=== PATIENT | female | born 1970 | race Caucasian/White ===

== ENCOUNTER 2019-12-03 23:05 | Emergency (ER) | payer BC, SELFPAY ==
[2019-12-03 23:06] VITALS: BP 169/97; PULSE 93; RESP 17; O2SAT 93
[2019-12-03 23:16] VITALS: BP 169/97; PULSE 101; RESP 14; TEMP 36.6; O2SAT 98; BMI 31.6
--- NOTE | 2019-12-03 23:24 | XR_ITS ---
PROCEDURE: XR ANKLE RT MIN 3V CLINICAL INDICATION: ankle pain Pain and swelling COMPARISON: No exams were available for comparison FINDINGS: There is mild soft tissue swelling at the lateral malleolar region. There is some inversion the ankle. Prominent hypertrophic changes are present of the anterior aspect of the talus. There is minimal anterior subluxation of the talus. 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
[2019-12-03 23:30] VITALS: BP 174/97; PULSE 86; RESP 18; O2SAT 93
--- NOTE | 2019-12-04 00:12 | HMH.EDLOEX ---
ED Disposition Clinical Impression: Ankle sprain and strain Disposition: Home, Self-Care Condition on Discharge: Fair Instructions: Sprain Additional Instructions: Ankle X rays showed no acute fracture; provided with an Aircast; Advised to have rest ice elevation and anti-inflammatory medication she will be prescribed crutches Referrals: Provider,Referral, [Primary Care Provider] - Time of Disposition: 01:27 - Critical Care Critical Care Time: No Attestation: On 12/03/19, the high probability of a clinically significant, sudden or life threatening deterioration of the following system(s) required my full and direct attention, intervention and personal management. The time I documented below is in addition to time spent performing reported procedures but includes the following listed in this critical care notation. Medical Decision Making - Medical Records Medical records reviewed: Yes: I reviewed the patient's medical records. MR Comment: Patient reports she was standing in the shower when she had a stabbing pain in her right ankle and had a knot pop up. Patient denies any known injuries. Xrays of the ankle showed no acute fracture. Plan is to provide her with an active ankle and advise rest, ice, elevation and anti-inflammatory medications - Mark Inquiry Pt receiving controlled substance: No Vital Signs: 12/03/19 23:06 12/03/19 23:16 12/03/19 23:30 Temperature 97.9 F Temperature Source Oral Pulse Rate [Right Brachial] 93 H 101 H 86 Respiratory Rate 17 14 18 Blood Pressure [Right Arm] 169/97 H 169/97 H 174/97 H Blood Pressure Mean [Right Arm] 121 121 122 Blood Pressure Source [Right Arm] Automatic Cuff Automatic Cuff Automatic Cuff Blood Pressure Position [Right Arm] Supine Sitting Supine 02 Sat by Pulse Oximetry 93 L 98 93 L Oxygen Delivery Method Room Air Room Air Room Air 12/04/19 00:40 Temperature Temperature Source Pulse Rate [Right Brachial] 77 Respiratory Rate 16 Blood Pressure [Right Arm] 145/93 H Blood Pressure Mean [Right Arm] 110 Blood Pressure Source [Right Arm] Automatic Cuff Blood Pressure Position [Right Arm] Sitting 02 Sat by Pulse Oximetry 97 Oxygen Delivery Method Room Air Orders (Tests/Meds): ED MEDICATIONS Discontinued Medications Generic Name Dose Route Start Last Admin Trade Name Freq PRN Reason Stop Dose Admin Ketorolac Tromethamine 60 mg 12/04/19 00:41 12/04/19 00:45 Toradol 60mg/2ml Vial IM 12/04/19 00:42 60 mg ONCE ONE Administration ORDERS Category Date Time Status Ankle XR -Right minimum 3 Views [XR ankle RT min 3V] Exams 12/03/19 23:24 Taken Stat Lower Extremity Injury HPI - General Chief Complaint: Extremity Injury, Lower Stated Complaint: Pain in Rt Ankle Time Seen by Provider: 12/03/19 23:33 Mode of Arrival: Ambulatory Limitations: No Limitations Description of Symptoms (Recalled from ER Triage Doc. by RN): Patient reports she was standing in the shower when she had a stabbing pain in her right ankle and had a knot pop up. Patient denies any known injuries. - History of Present Illness HPI Narrative: Patient reports she was standing in the shower when she had a stabbing pain in her right ankle and had a knot pop up. Patient denies any known injuries. Onset (ago): minute(s) Injury: Right: ankle (pain and swelling) Type of Injury: unknown Place: home Severity: moderate Severity scale (1-10): 4 Relieving factors: NSAID Exacerbating factors: movement Context: other Associated symptoms: snap/pop sensation, swelling Other symptoms: none Treatments prior to arrival: cold therapy - Related Data Allergies Allergy/AdvReac Type Severity Reaction Status Date / Time No Known Allergies Allergy Verified 12/03/19 23:23 [facility] History - Hepatitis A Screen Drug use history?: No High risk sexual behaviors?: No History of sexually transmitted infection?: No Currently employed?: No Childcare worker?: No Do you
[2019-12-04 00:40] VITALS: BP 145/93; PULSE 77; RESP 16; O2SAT 97
[2019-12-04 01:36] VITALS: BP 148/86; PULSE 70; RESP 16; TEMP 36.6; O2SAT 96
== END 2019-12-04 01:57 | disposition home or self-care (01) ==
PROVIDERS: Emergency Provider Emergency Medicine
DX: S93.401A Sprain of unspecified ligament of right ankle, initial encounter (principal); X50.1XXA Overexertion from prolonged static or awkward postures, initial encounter; Y92.012 Bathroom of single-family (private) house as the place of occurrence of the external cause; F17.210 Nicotine dependence, cigarettes, uncomplicated
CPT/HCPCS: 73610; 96372; 99283

== ENCOUNTER 2021-06-02 21:54 | Observation (INO) | payer OTHER, SELFPAY ==
--- NOTE | 2021-06-02 21:37 | ECG_ITS ---
APPROVED REPORT Exam: Resting ECG HR:127 bpm ECG Measurements Heart Rate 127 AXES OR 162 P 59 QRSd 96 QRS 60 QT 310 T 45 QTc 450 Conclusion Sinus tachycardia Otherwise normal ECG Electronically signed by : Jimbo Shields MD 06/04/2021 14:28:55
[2021-06-02 21:54] VITALS: BP 189/120; PULSE 121; RESP 20; TEMP 36.8; O2SAT 97; BMI 30.7
[2021-06-02 22:00] VITALS: BP 162/98; PULSE 100; RESP 20; TEMP 36.9; O2SAT 98
--- NOTE | 2021-06-02 22:10 | XR_ITS ---
PROCEDURE INFORMATION: Exam: XR Chest Exam date and time: 06/02/2021 10:14 PM Age: 51 years old Clinical indication: Chest wall pain TECHNIQUE: Imaging protocol: XR of the chest. Views: 2 views. COMPARISON: No relevant prior studies available. FINDINGS: Lungs: Unremarkable. No consolidation. Pleural spaces: Unremarkable. No pleural effusion. No pneumothorax. Heart/Mediastinum: Unremarkable. No cardiomegaly. Bones/joints: Unremarkable. IMPRESSION: No acute findings.
[2021-06-03] VITALS (18 sets, daily range): BP systolic 123–172; BP diastolic 77–99; PULSE 62–101; RESP 16–20; TEMP 36.5–36.8; O2SAT 90–98
--- NOTE | 2021-06-03 | IR_ITS ---
APPROVED REPORT Patient Location: Inpatient Pre Sales Network Engineer: ADRIÁN Altman RT (R) PROCEDURES Left heart catheterization Left ventriculogram Selective coronary angiogram INDICATION Unstable angina Informed consent was obtained prior to the procedure. COMPLICATIONS None Estimated Blood Loss: Less than 10 mls TECHNIQUE One percent lidocaine used to anesthetize the right anterior aspect of the wrist. The right radial artery was accessed via the Seldinger technique. A 6 Afghan sheath was placed in the right radial artery. 2.5 mg of verapamil, 800 mcg of nitroglycerin, 1mg Lidocaine and 5000 U Heparin were given through the arterial sheath. The Poppa 1 and a multipurpose catheter was also used to perform left heart catheterization, left ventriculogram and selective coronary angiogram. At the end of the procedure the sheath was removed good hemostasis was achieved using Traclet band, patient was transferred to the postop holding area in stable condition. ANGIOGRAPHIC RESULTS The left main artery Normal The left anterior descending artery Mild proximal and mid vessel 10% luminal irregularities The circumflex artery Dominant with mild 10 to 20% proximal luminal irregularities The right coronary artery Nondominant with mild 10% luminal irregularities The BURDICK ventriculogram reveals Normal 65% The left ventricular end-diastolic pressure 25 mmHg IMPRESSION Mild nonflow known coronary disease Normal ejection fraction Elevated LVEDP PLAN 1. Treatment of diastolic dysfunction 2. Risk factor modification Electronically signed by : Jones Bob MD 06/03/2021 12:48:49
--- NOTE | 2021-06-03 01:13 | HMH.EDCP ---
ED Disposition Clinical Impression: Unstable angina pectoris Disposition: Admitted As Inpatient Condition on Discharge: Good - Critical Care Critical Care Time: No Attestation: On 06/02/21, the high probability of a clinically significant, sudden or life threatening deterioration of the following system(s) required my full and direct attention, intervention and personal management. The time I documented below is in addition to time spent performing reported procedures but includes the following listed in this critical care notation. Medical Decision Making - Medical Records Medical records reviewed: Yes: I reviewed the patient's medical records. - Mark Inquiry Pt receiving controlled substance: No Vital Signs: 06/02/21 21:54 06/02/21 22:00 06/03/21 01:40 Temperature 98.3 F 98.5 F 98.3 F Temperature Source Oral Oral Oral Pulse Rate 100 H 101 H Pulse Rate [Apical] 121 H Respiratory Rate 20 20 20 Blood Pressure 162/98 H 140/88 Blood Pressure [Right Arm] 189/120 H Blood Pressure Mean [Right Arm] 143 Blood Pressure Source Automatic Cuff Manual Cuff/ Doppler Blood Pressure Source [Right Arm] Automatic Cuff Blood Pressure Position Sitting Sitting Blood Pressure Position [Right Arm] Sitting 02 Sat by Pulse Oximetry 97 98 97 Oxygen Delivery Method Room Air Room Air Room Air 06/03/21 01:59 Temperature Temperature Source Pulse Rate Pulse Rate [Apical] Respiratory Rate Blood Pressure 172/80 H Blood Pressure [Right Arm] Blood Pressure Mean [Right Arm] Blood Pressure Source Manual Cuff/ Auscultation Blood Pressure Source [Right Arm] Blood Pressure Position Blood Pressure Position [Right Arm] 02 Sat by Pulse Oximetry Oxygen Delivery Method - Lab Data Lab results reviewed: Yes: I reviewed the patient's lab results. Lab Results 06/02/21 21:55: Triglycerides 242 H, Cholesterol 269 H, LDL Cholesterol Direct 164.52 H, VLDL Cholesterol 48 H, HDL Cholesterol 50, Cholesterol/HDL Ratio 5.4 H 06/03/21 01:51: Troponin I < 0.01 Orders (Tests/Meds): ED MEDICATIONS Generic Name Dose Route Start Last Admin Trade Name Freq PRN Reason Stop Dose Admin Bisoprolol Fumarate 10 mg 06/03/21 09:00 06/03/21 03:50 Bisoprolol 5mg Tablet PO 07/03/21 08:59 10 mg DAILY GLENN Administration Discontinued Medications Generic Name Dose Route Start Last Admin Trade Name Freq PRN Reason Stop Dose Admin Nitroglycerin 1 gm 06/03/21 01:58 06/03/21 01:59 Nitroglycerin 1 Gm Ointment TD 06/03/21 01:59 1 gm ONCE ONE Administration Nitroglycerin 0.4 mg 06/03/21 01:58 06/03/21 01:59 Nitroglycerin 0.4mg Sl Tablet SL 06/03/21 01:59 0.4 mg ONCE ONE Administration ORDERS Category Date Time Status XR chest 2V Stat Exams 06/02/21 22:10 Taken Rapid PCR Covid and Flu A/B Stat Lab 06/03/21 02:45 Received - Radiology Data #1 Image(s): Chest Image Reviewed: Yes I have reviewed radiologist's interpretation Preliminary Findings: Normal/NAD - ECG Data Tracing #1 Normal Sinus Rhythm: Yes Ischemic changes: non-specific ST-T wave changes - Physician Consults Physician Consulted: roddy Reason -: Admission Additional Consult: susan Reason -: Pt condition - Reevaluation(s) Time: 01:39 Reevaluation #1: improved with ntg Medical Decision Narrative: discussed with pt who has prob unstable angina with sig risk factors and will need card eval Chest Pain HPI - General Chief Complaint: Chest Pain Stated Complaint: chest pain Time Seen by Provider: 06/02/21 22:10 Mode of Arrival: Ambulatory Source of Information: Patient, Medical Record Limitations: No Limitations Description of Symptoms (Recalled from ER Triage Doc. by RN): Patient states that approximately 2.5 hours ago she was sitting down watching television and she began experiencing pain in her lower left arm. She states that she began having pain in her lower jaw roughly 30 minutes afte
[2021-06-03 02:31] LABS: Cholesterol 269 mg/dl (140-200); Triglycerides 242 mg/dl (30-150); VLDL Cholesterol 48 mg/dL (0-40)
[2021-06-03 02:32] LABS: Chol/HDL Ratio 5.4 (1-3.5); HDL Cholesterol 50 mg/dl (40-60)
[2021-06-03 02:42] LABS: Direct LDL Cholesterol 164.52 mg/dL (100-129)
--- NOTE | 2021-06-03 02:43 | PC.NURSE ---
Patient states that she took 325 mg of aspirin last night prior to coming to the emergency room so she did not take the dose that was offered in the emergency department
[2021-06-03 02:45] LABS: Troponin I < 0.01 ng/ml (0.00-0.034)
[2021-06-03 03:24] LABS: Coronavirus 19, PCR Not Detected (NotDetected); Influenza A, PCR Not Detected (NotDetected); Influenza B, PCR Not Detected (NotDetected)
[2021-06-03 05:24] LABS: Sodium 139 mmol/L (136-145); Troponin I < 0.01 ng/ml (0.00-0.034)
[2021-06-03 05:26] LABS: Bilirubin,Direct 0.3 mg/dl (0.0-0.4); Bilirubin,Total 0.4 mg/dl (0.2-1.3); Blood Urea Nitrogen 11 mg/dl (7-17); Calcium 9.8 mg/dl (8.4-10.2); Carbon Dioxide 29 mmol/L (22.0-30.0); Chloride 101 mmol/L (98-107); Creatinine Clearance Estimated 91 mL/min (50-200); Estimated Glomerular Filt Rate 58 ml/min (>60); GFR (African American) 71 ML/MIN (>60); Glucose 117 mg/dl (74-100)
[2021-06-03 05:27] LABS: Alanine Aminotransferase 30 U/L (12-78); Albumin Level 4.8 g/dl (3.5-5.0); Alkaline Phosphatase 162 U/L (38-126); Aspartate Amino Transferase 36 U/L (14-36); C-Reactive Protein 20.9 mg/L (0-4); NT Pro Brain Natriuretic Pep. 12.8 pg/mL (0-125); Procalcitonin 0.052 ng/mL (0.0-2.0); Total Protein,Serum 8.6 g/dl (6.3-8.2)
[2021-06-03 05:31] LABS: Erythrocyte Sedimentation Rate 20 mm/hr (0-30)
[2021-06-03 05:33] LABS: Hematocrit 43.9 % (37.0-47.0); Hemoglobin 14.3 g/dL (12.2-16.2); Mean Corpuscular HGB Conc 32.5 g/dL (31.8-35.4); Mean Corpuscular Hemoglobin 31.1 pg (27.0-31.2); Mean Corpuscular Volume 95.9 fl (81-99); Red Blood Count 4.58 M/mm3 (4.20-5.40); Red Cell Distribution Width 13.1 % (11.5-17.5)
[2021-06-03 05:34] LABS: Basophils % 1.7 % (0.1-2.0); Eosinophils % 1.3 % (0.1-12.0); Lymphocytes # 1.9 K/mm3 (0.7-4.5); Lymphocytes % 19.1 % (10-50); Mean Platelet Volume 8.6 fl (7.4-10.4); Monocytes % 3.5 % (1.7-9.3); Neutrophils # 7.4 K/mm3 (1.8-7.8); Neutrophils % 73.6 % (37.0-80.0); Platelet Count 429 K/mm3 (142-424)
[2021-06-03 05:35] LABS: Basophils # 0.2 K/mm3 (0-0.2); Eosinophils # 0.1 K/mm3 (0.0-0.4); Monocytes # 0.4 K/mm3 (0.1-1.0)
--- NOTE | 2021-06-03 07:05 | PC.NURSE ---
PATIENT GROIN AND WRISTS CLIPPED. PATIENT HAS SHOWERED.
--- NOTE | 2021-06-03 07:14 | P.CONPHA_ITS ---
[facility] Pharmacy VTE Monitoring - Patient Demographics Admission date: 06/03/21 Report Date: 06/03/21 Time: 07:14 Allergies/Adverse Reactions: Patient Allergies No Known Allergies Allergy (Verified 12/03/19 23:23) Height: 1.68 m Weight: 86.183 kg Patient Problems: Current Active Problems Unstable angina pectoris (Acute) - VTE Risk Labs: VTE Related Lab Results Hgb 14.3 g/dL (12.2-16.2) 06/02/21 23:00 Hct 43.9 % (37.0-47.0) 06/02/21 23:00 Plt Count 429 K/mm3 (142-424) H 06/02/21 23:00 BUN 11 mg/dl (7-17) 06/02/21 23:00 Creatinine 1.00 mg/dl (0.52-1.04) 06/02/21 23:00 Estimated Creat Clear 91 mL/min (50-200) 06/02/21 23:00 Was VTE Risk Assessment Performed: Yes VTE Score: 2 Clinical Trial Participant: No - Prophylaxis VTE Prophylaxis Ordered?: Yes Types of VTE Prophylaxis: TEDS Knee High
--- NOTE | 2021-06-03 07:30 | PC.NURSE ---
Report received from ZEN Norwood.
--- NOTE | 2021-06-03 09:05 | HMH.HP ---
*Admission Date: 06/03/21 *Chief complaint: Chest and arm pain *History of present illness: 51-year-old white female who is a longtime smoker and suffers from obesity presented to the emergency department with a feeling of left-sided upper chest pressure and shoulder pain as well as knifelike left-sided arm pain and pain that radiated up into her left jaw. These pains occurred more or less simultaneously. They occurred while she was trying to get her grandchildren into bed but she was not really doing anything strenuous. She reported to the ER because of her concern about heart disease. She had an episode similar to this earlier in 2020 and was worked up at the hospital in [place] with a stress test and echo which were reportedly normal. No medication changes were made and she is continue to smoke. Because of her risk factors, character of the pain and previous normally risk stratification she was admitted to hospital for cardiology evaluation and consideration of left heart cath. [facility] History I have reviewed the patient's past medical history: Yes Medical History: Reports:: MRSA (2005) Denies:: Cancer, Diabetes Mellitus Type 1, Diabetes Mellitus Type 2 *Have you ever received a pneumonia vaccine?: No *Have you received a flu vaccine this season?: Yes Other Surgeries: Yes: Cholecystectomy Amputation: No Fractures: No - *Social History Last grade of school completed: Advanced degree Smoking Status: Current every day smoker Tobacco Type: cigarettes # Packs/Day (cigarettes): 1 Alcohol Intake: current Alcohol Intake Frequency:: a few times a month *Occupational Status:: employed Housing: house Household Members: none *Travel in the last 8 weeks: None Family Hx:: Cancer, Coronary Artery Disease, Diabetes, Heart Attack, Hyperlipidemia, Hypertension, Stroke Review of Systems - Review of Systems Review of systems:: pertinent systems reviewed and negative unless documented below - *Neurologic Denies seizure-like activity Meds Home Medications Medication Instructions Recorded Confirmed Type No Known Home Medications 06/02/21 06/02/21 History Allergies Allergy/AdvReac Type Severity Reaction Status Date / Time No Known Allergies Allergy Verified 12/03/19 23:23 Exam Vital signs and Labs for Last 24 Hours: Temp Pulse Resp BP Pulse Ox 98.1 F 80 20 123/89 98 06/03/21 05:13 06/03/21 05:13 06/03/21 05:13 06/03/21 05:13 06/03/21 05:13 Laboratory Results - last 24 hr 06/02/21 21:55: Triglycerides 242 H, Cholesterol 269 H, LDL Cholesterol Direct 164.52 H, VLDL Cholesterol 48 H, HDL Cholesterol 50, Cholesterol/HDL Ratio 5.4 H 06/02/21 23:00: WBC 10.0, RBC 4.58, Hgb 14.3, Hct 43.9, MCV 95.9, MCH 31.1, MCHC 32.5, RDW 13.1, Plt Count 429 H, MPV 8.6, Neut % (Auto) 73.6, Lymph % (Auto) 19.1, Nuckolls % (Auto) 3.5, Eos % (Auto) 1.3, Baso % (Auto) 1.7, Neut # (Auto) 7.4, Lymph # (Auto) 1.9, Nuckolls # (Auto) 0.4, Eos # (Auto) 0.1, Baso # (Auto) 0.2, ESR 20 06/02/21 23:00: Sodium 139, Potassium 3.0 L, Chloride 101, Carbon Dioxide 29, Anion Gap 12.0, BUN 11, Creatinine 1.00, Estimated Creat Clear 91, Estimated GFR 58 L, Est GFR ( Amer) 71, Glucose 117 H, Calcium 9.8, Total Bilirubin 0.4, Direct Bilirubin 0.3, Conjugated Bilirubin 0.0, Indirect Bilirubin 0.0, Unconjugated Bilirubin 0.0, AST 36, ALT 30, Alkaline Phosphatase 162 H, Troponin I < 0.01, C-Reactive Protein 20.9 H, NT-Pro-B Natriuret Pep 12.8, Total Protein 8.6 H, Albumin 4.8, Procalcitonin 0.052 06/03/21 01:51: Troponin I < 0.01 06/03/21 02:45: SARS-CoV-2 (PCR) Not detected, Influenza A Untype (PCR) Not detected, Influenza Type B (PCR) Not detected I & O for Last 24 hours: Intake & Output 05/31/21 06/01/21 06/02/21 06/03/21 11:59 11:59 11:59 11:59 Intake Total 1000 / 1000 Balance 1000 / 1000 Weight 190 lb - Constitutional no acute distress - *Routine HEENT Exam Head: Present: normocephalic Eye: Present: EOMI, PERRL ENT: Present:
--- NOTE | 2021-06-03 09:16 | HMH.CNCARD ---
History of Present Illness Consult date: 06/03/21 Requesting physician: Jimbo Shields Consult reason: chest pain Chief complaint: Unstable angina History of present illness: 51-year-old female presented to the emergency room last evening with jaw pain radiating down the left arm accompanied with numbness. Patient states she had been having left-sided chest pain radiating down the left arm for a few days. Patient did state that the chest pain had been more of an achy feeling in which has come and gone since August 2020. Patient states her chest pain has been relieved by nitroglycerin. Patient denies chest pain, tightness or pressure at this time. Patient is very anxious. Patient denies shortness of breath. Patient does complain of dizziness and palpitations especially with her anxiety. Patient denies any history of coronary artery disease. Patient states she did have a cardiac work-up by the means of a stress test and echocardiogram at [facility] in August 2020 which revealed normal per patient. Patient states she just feels that something is wrong with her heart and just wants to be checked out. Patient does have a family history of coronary artery disease. Patient states father has had several MIs in the past. Unknown of age. Patient denies history of hypertension or hyperlipidemia. Patient states she was told she did have a fast heart rate at times especially when she is anxious. Patient smoke at least 1 pack/day. Patient states when she is anxious she will smoke more. No swelling noted of the lower extremities. quality assurance monitor final reveals sinus tach with a heart rate of 101 bpm with no ectopy. Blood pressure is stable. Potassium was noted to be 3.0 which is low. PCP has ordered potassium riders. Discussed with patient the benefits and latasha of undergoing left heart catheterization due to unstable angina. Patient patient verbalized understanding and is agreeable to procedure. Pending on the results of the left heart catheterization, medication and treatment therapies may be recommended. Echocardiogram will be obtained to assess LV function and valve status. Pending on the results of the echocardiogram, medication and treatment therapies may be recommended. [facility] History I have reviewed the patient's past medical history: Yes Medical History: Reports:: MRSA (2005) Denies:: Cancer, Diabetes Mellitus Type 1, Diabetes Mellitus Type 2 *Have you ever received a pneumonia vaccine?: No *Have you received a flu vaccine this season?: Yes Other Surgeries: Yes: Cholecystectomy Amputation: No Fractures: No - *Social History Last grade of school completed: Advanced degree Smoking Status: Current every day smoker Tobacco Type: cigarettes # Packs/Day (cigarettes): 1 Alcohol Intake: current Alcohol Intake Frequency:: a few times a month *Occupational Status:: employed Housing: house Household Members: none *Travel in the last 8 weeks: None Family Hx:: Cancer, Coronary Artery Disease, Diabetes, Heart Attack, Hyperlipidemia, Hypertension, Stroke Meds Home Medications Medication Instructions Recorded Confirmed Type No Known Home Medications 06/02/21 06/02/21 History Allergies Allergy/AdvReac Type Severity Reaction Status Date / Time No Known Allergies Allergy Verified 12/03/19 23:23 Exam Vital signs and Labs for Last 24 Hours: Temp Pulse Resp BP Pulse Ox 98.1 F 80 20 123/89 98 06/03/21 05:13 06/03/21 05:13 06/03/21 05:13 06/03/21 05:13 06/03/21 05:13 Laboratory Results - last 24 hr 06/02/21 21:55: Triglycerides 242 H, Cholesterol 269 H, LDL Cholesterol Direct 164.52 H, VLDL Cholesterol 48 H, HDL Cholesterol 50, Cholesterol/HDL Ratio 5.4 H 06/02/21 23:00: WBC 10.0, RBC 4.58, Hgb 14.3, Hct 43.9, MCV 95.9, MCH 31.1, MCHC 32.5, RDW 13.1, Plt Count 429 H, MPV 8.6, Neut % (Auto) 73.6, Lymph % (Auto) 19.1, Frederick % (Auto) 3.5, Eos % (Auto) 1.3, Baso % (Auto) 1.7, Neut # (Auto)
--- NOTE | 2021-06-03 09:18 | CA_ITS ---
APPROVED REPORT EXAM: Comprehensive 2D, Doppler, and color-flow Echocardiogram Financial Counselor: Rosette Sethi, RT(R) Ht: 5 ft 6 in Wt: 190lbs BSA: 1.96 BP: 123/89 mmHg Indications: angina, left arm and jaw pain, smoker, obesity, family history of HD. 2D Dimensions LVOT 2.00 cm (M/F) 1.5-2.5 M-Mode Dimensions RVDd 3.59 cm (0.9-2.6) LA Diam 3.52 cm (1.9-4.0) LVDd 3.74 cm (3.5-5.7) Ao Diam 3.12 cm (2.0-3.7) LVDs 2.78 cm (3.5-5.7) IVSd 0.75 cm (0.6-1.1) PWd 0.89 cm (0.6-1.1) EF (Teich) 51.30% FS 25.70% EDV (Teich) 59.60 mL ESV (Teich) 29.00 mL LV Diastology E Decel Time 177.00 (160-240 msec) E/A Ratio 1.0 MED E' 10.30 (< 7 cm/sec) E'/MED E' Ratio 7.67 (>14) LAT E' 11.00 (<10 cm/sec) E/LAT E' Ratio 7.18 (>14) Mitral Valve MV E Max Darrin. 79.00 (40-130 cm/s) MV A Velocity 77.00 (40-130 cm/s) E/A Ratio 1.02 MV Decel. Time 177.00 (160-240 ms) MV PHT 52.00 ms Left Ventricle Left atrium is mildly enlarged, left ventricle is normal size, mild concentric left ventricular hypertrophy, visually estimated ejection fraction 55% with no regional wall motion abnormality. Diastolic parameters are within normal range. Right Ventricle Right atrium and right ventricle mildly enlarged with normal contractility. Aortic Valve Aortic valve is minimally thickened and fibrosed, there is no aortic stenosis or aortic insufficiency. Mitral Valve Mitral valve grossly normal, there is trace mitral regurgitation. Tricuspid Valve Tricuspid grossly normal, there is trace tricuspid regurgitation, tricuspid regurgitation jet velocity is inadequate for calculation of the right ventricular systolic pressure. Pulmonic Valve Pulmonic valve is poorly visualized. Great Vessels Aortic root is normal size. Inferior vena cava is poorly visualized. Pericardium No significant pericardial effusion noted. Conclusion 1. Mild biatrial enlargement, normal left ventricular size, mild concentric left ventricular hypertrophy, visually estimated ejection fraction 55% with no regional wall motion abnormality, diastolic parameters are within normal range. 2. Mildly enlarged right ventricle with normal contractility. 3. Trace mitral and tricuspid regurgitation. 4. No significant pericardial effusion noted. 5. Inferior vena cava is poorly visualized. Electronically signed by : Jason Greenfield MD 06/03/2021 10:46:22
--- NOTE | 2021-06-03 11:49 | PC.NURSE ---
Sarthak from [employer] here to get pt for procedure. Report given.
--- NOTE | 2021-06-03 13:28 | HMH.DCSUM ---
General - General Admission date:: 06/03/21 Discharge date: 06/03/21 HPI HPI: 51-year-old white female who is a longtime smoker and suffers from obesity presented to the emergency department with a feeling of left-sided upper chest pressure and shoulder pain as well as knifelike left-sided arm pain and pain that radiated up into her left jaw. These pains occurred more or less simultaneously. They occurred while she was trying to get her grandchildren into bed but she was not really doing anything strenuous. She reported to the ER because of her concern about heart disease. She had an episode similar to this earlier in 2020 and was worked up at the hospital in [place] with a stress test and echo which were reportedly normal. No medication changes were made and she is continue to smoke. Because of her risk factors, character of the pain and previous normally risk stratification she was admitted to hospital for cardiology evaluation and consideration of left heart cath. Hospital Course Hospital Course: Patient was admitted, because of significant risk factors was taken to the cardiac Transportation Refrigeration Technician. Cardiac catheterization accomplished, clear coronaries but evidence of diastolic dysfunction noted. Patient tolerated procedure well. She will be discharged home on Lasix and Aldactone. Please see cardiology notes for details. I will follow her up in my office in the next week or so. Objective Vital signs: Temp Pulse Resp BP Pulse Ox 97.7 F 76 18 136/92 H 97 06/03/21 08:30 06/03/21 13:10 06/03/21 13:10 06/03/21 13:10 06/03/21 13:10 no acute distress - *Routine HEENT Exam Head: Present: normocephalic Eye: Present: EOMI, PERRL ENT: Present: mucous membranes moist - *Routine Neck Exam Present: supple - *Routine Respiratory Exam Present: CTA bilaterally - *Routine Cardiovascular Exam Present: RRR - *Routine Abdominal Exam Present: soft, normoactive bowel sounds. Absent: tenderness - *Routine Extremities Exam Absent: cyanosis, clubbing, edema - *Routine Skin Exam Present: warm. Absent: rash - Detailed Eye Exam Eyelids: Bilateral normal inspection Results Labs on day of discharge: Labs from last 24 hours 06/03/21 06/03/21 06/02/21 02:45 01:51 23:00 WBC RBC Hgb Hct MCV MCH MCHC RDW Plt Count MPV Neut % (Auto) Lymph % (Auto) Grayson % (Auto) Eos % (Auto) Baso % (Auto) Neut # (Auto) Lymph # (Auto) Grayson # (Auto) Eos # (Auto) Baso # (Auto) ESR Sodium 139 Potassium 3.0 L Chloride 101 Carbon Dioxide 29 Anion Gap 12.0 BUN 11 Creatinine 1.00 Estimated Creat Clear 91 Estimated GFR 58 L Est GFR ( Amer) 71 Glucose 117 H Calcium 9.8 Total Bilirubin 0.4 Direct Bilirubin 0.3 Conjugated Bilirubin 0.0 Indirect Bilirubin 0.0 Unconjugated Bilirubin 0.0 AST 36 ALT 30 Alkaline Phosphatase 162 H Troponin I < 0.01 < 0.01 C-Reactive Protein 20.9 H NT-Pro-B Natriuret Pep 12.8 Total Protein 8.6 H Albumin 4.8 Triglycerides Cholesterol LDL Cholesterol Direct VLDL Cholesterol HDL Cholesterol Cholesterol/HDL Ratio Procalcitonin 0.052 SARS-CoV-2 (PCR) Not detected Influenza A Untype (PCR) Not detected Influenza Type B (PCR) Not detected 06/02/21 06/02/21 23:00 21:55 WBC 10.0 RBC 4.58 Hgb 14.3 Hct 43.9 MCV 95.9 MCH 31.1 MCHC 32.5 RDW 13.1 Plt Count 429 H MPV 8.6 Neut % (Auto) 73.6 Lymph % (Auto) 19.1 Grayson % (Auto) 3.5 Eos % (Auto) 1.3 Baso % (Auto) 1.7 Neut # (Auto) 7.4 Lymph # (Auto) 1.9 Grayson # (Auto) 0.4 Eos # (Auto) 0.1 Baso # (Auto) 0.2 ESR 20 Sodium Potassium Chloride Carbon Dioxide Anion Gap BUN Creatinine Estimated Creat Clear Estimated GFR Est GFR ( Amer) Glucose Calcium Total Bilirubin Dire
--- NOTE | 2021-06-03 13:29 | PC.NURSE ---
Report received from [employer] Wind[employer] Installer RN
--- NOTE | 2021-06-03 13:50 | PC.NURSE ---
Pt arrived to floor -room 280- via stretcher with laborer dairy farm personnel x2.
--- NOTE | 2021-06-03 14:29 | PC.NURSE ---
Pt sleeping soundly (snoring) sig other at bs.
--- NOTE | 2021-06-03 15:39 | PC.NURSE ---
1450- (-2ml air) 1505- (-2ml air) 1520- (-2ml air) 1535- (-2ml air)
--- NOTE | 2021-06-03 17:07 | PC.NURSE ---
1550- (-2ml air) 1605- (-2ml air) 1620- (-2ml air) 1635- (-2ml air) 1510- (-2ml air)
--- NOTE | 2021-06-03 17:20 | PC.NURSE ---
Pt ambulated to bathroom to void and back to bed w/o difficulty. Now sitting up in bed eating dinner. Sig other remains at bs.
--- NOTE | 2021-06-03 18:00 | PC.NURSE ---
1800- Radial Band removed at this time. 2x2 gauze and tegaderm dressing applied. Tolerated well. IV saline lock also removed with catheter intact. 2x2 gauze and tape appied to site.
== END 2021-06-03 18:53 | disposition home or self-care (01) ==
LOC: ER 22:00 → OB 06-03 04:05
PROVIDERS: Internal Medicine; Admitting Provider Internal Medicine Adolescent Medicine; Emergency Provider Emergency Medicine; PCP Nurse Practitioner; Visit Provider Internal Medicine Adolescent Medicine
DX: I25.118 Atherosclerotic heart disease of native coronary artery with other forms of angina pectoris (principal); F17.210 Nicotine dependence, cigarettes, uncomplicated; Z82.49 Family history of ischemic heart disease and other diseases of the circulatory system
CPT/HCPCS: 71046; 80048; 80061; 80076; 83880; 84145; 84484; 85025; 85651; 86140; 93005; 93306; 93458; 96365; 99152; 99284; C1725; C1769; C9803; G0378; J1644; Q9967; U0003; U0005

== ENCOUNTER → 2022-10-11 10:20 | Outpatient (CLI) | payer BC, SELFPAY ==
--- NOTE | 2022-10-11 10:27 | US_ITS ---
FINAL REPORT CLINICAL HISTORY: ELEVATED LEVELS FINDINGS: LIVER ULTRASOUND Sonographic images of the right upper quadrant were obtained. The pancreas is partially obscured. There is fatty infiltration of the liver. The portal vein is normal measuring 9 mm with normal directional flow. The gallbladder is absent. The common duct is normal measuring 3 mm. Limited images of the right kidney are normal. IMPRESSION: Fatty liver. Reviewed, Interpreted and Dictated by Luis A Juarez III, MD Transcribed by Rekha Wu Authenticated and . [facility]
--- NOTE | 2022-10-11 10:28 | XR_ITS ---
FINAL REPORT CLINICAL HISTORY: Chronic cough, smoker FINDINGS: Two views of the chest were obtained. The heart size and pulmonary vascularity are within normal limits. The mediastinum is normal. No acute pulmonary abnormality is identified. There is no pneumothorax. The bony thorax is intact. IMPRESSION: No active cardiopulmonary disease. Reviewed, Interpreted and Dictated by Luis A Juarez III, MD Transcribed by Coco Blank Authenticated and [facility]
== END ==
PROVIDERS: PCP Nurse Practitioner; Visit Provider Nurse Practitioner Family
DX: R74.01 Elevation of levels of liver transaminase levels (principal); R74.8 Abnormal levels of other serum enzymes
CPT/HCPCS: 71046; 76705

== ENCOUNTER → 2022-12-07 10:26 | Outpatient (CLI) | payer BC, SELFPAY ==
--- NOTE | 2022-12-07 10:32 | XR_ITS ---
FINAL REPORT CLINICAL HISTORY: Foot Pain, swelling FINDINGS: LEFT FOOT Three views of the left foot demonstrate no acute fracture or dislocation. The visualized joint spaces are normally aligned. The soft tissues are unremarkable. IMPRESSION: No acute bony abnormality. Reviewed, Interpreted and Dictated by Luis A Juarez III, MD Transcribed by Caty Hall Authenticated and [facility]
--- NOTE | 2022-12-07 10:32 | XR_ITS ---
FINAL REPORT CLINICAL HISTORY: Foot Pain, swelling FINDINGS: RIGHT FOOT 3 views of the right foot were obtained. There is no acute fracture or dislocation. Visualized joint spaces are normally aligned. Soft tissues are unremarkable. IMPRESSION: No acute bony abnormality. Reviewed, Interpreted and Dictated by Luis A Juarez III, MD Transcribed by Caty Hall Authenticated and [facility]
--- NOTE | 2022-12-07 10:46 | XR_ITS ---
FINAL REPORT CLINICAL HISTORY: ankle pain, cyst on medial side of rt ankle COMPARISON: 12/03/2019 FINDINGS: RIGHT ANKLE SERIES Three views of the right ankle were obtained. There is no acute fracture or dislocation. There is moderate to severe degenerative change, significantly worse since the prior. There is worsening tibial talar joint space narrowing. There is a mild varus angulation of the talus. There are chronic soft tissue calcifications present. There is a probable joint effusion. There is soft tissue swelling is present. IMPRESSION: Moderate to severe degenerative changes as stated above. Worsening tibiotalar joint space narrowing. Mild varus angulation of the talus. Reviewed, Interpreted and Dictated by Luis A Juarez III, MD Transcribed by Caty Hall Authenticated and [facility]
[2022-12-07 12:14] LABS: INR 0.94 (0.9-1.1); Prothrombin Time 10.2 seconds (10.1-12.5)
[2022-12-07 12:33] LABS: Alanine Aminotransferase 45 U/L (12-78); Albumin Level 4.5 g/dl (3.5-5.0); Alkaline Phosphatase 150 U/L (38-126); Aspartate Amino Transferase 47 U/L (14-36); Bilirubin,Direct 0.2 mg/dl (0.0-0.4); Bilirubin,Indirect 0.1 mg/dL (0.0-0.9); Bilirubin,Total 0.3 mg/dl (0.2-1.3); Bilirubin,Unconjugated 0.1 mg/dL (0.0-1.1)
[2022-12-07 13:09] LABS: Ferritin 96.9 ng/ml (11.1-264)
[2022-12-08 06:02] LABS: Hep A Ab, Total Negative (Negative); Hep B Surface Ab, Qual Non Reactive (.)
[2022-12-08 16:03] LABS: Actin (Smooth Muscle) Antibody 12 Units (0-19); Mitochondrial (M2) Antibody 164.8 Units (0.0-20.0)
[2022-12-08 16:12] LABS: Immunoglobulin G, Qn 1344 mg/dL (586-1602)
[2022-12-12 17:11] LABS: Alpha-1-Antitrypsin 153 mg/dL (101-187)
[2022-12-29 10:40] LABS: Fibrosis Score 0.05; Fibrosis Stage F0-NO FIBROSIS
[2022-12-29 10:41] LABS: NASH Grade N1; NASH Score 0.42; Steatosis Grade S2-S3; Steatosis Score 0.69
[2022-12-29 10:42] LABS: Alpha 2-Macroglobulins, Qn 132; Apolipoprotein A-1 126; Bilirubin, Total 0.2; GGT 31; Haptoglobin 206
[2022-12-29 10:43] LABS: ALT (SGPT) P5P 41; AST (SGOT) P5P 39; Cholesterol, Total 235; Glucose 88; Triglycerides 176
== END ==
PROVIDERS: PCP Nurse Practitioner Family; Visit Provider Physician Assistant
DX: M79.672 Pain in left foot (principal); M79.671 Pain in right foot; M25.571 Pain in right ankle and joints of right foot; R74.01 Elevation of levels of liver transaminase levels
CPT/HCPCS: 36415; 73610; 73630; 80076; 81256; 82103; 82104; 82728; 82784; 85610; 86255; 86256; 86706; 86708

== ENCOUNTER 2023-01-31 06:25 | Day surgery (SDC) | payer OTHER, SELFPAY ==
[2023-01-27 09:28] VITALS: BMI 33.3
[2023-01-31] VITALS (7 sets, daily range): BP systolic 104–128; BP diastolic 65–84; PULSE 66–98; RESP 14–18; TEMP 36.4–36.7; O2SAT 91–99
--- NOTE | 2023-01-31 07:12 | EXP.ANES.CKL ---
[facility] Disclaimer: The information contained in this section may have been updated after the patient was seen, as this information can be updated by other users. Medical History Migraine Osteoarthritis Surgical History History of cholecystectomy History of right heart catheterization (RHC) Family History Other Family history of diabetes mellitus type II Family history of multiple sclerosis Family history of myocardial infarction Social History Smoking Status: Current every day smoker tobacco type: cigarettes packs per day: 1 alcohol intake: current current occupational status: employed Travel in the last 8 weeks: None household members: none housing: house caffeine: Yes [facility] Anesthesia Checklist Patient Identification Patient Identification: Arm Band and Verbal (Name & ) Structural Data Admitted From: Home Planned Operative Procedure/s: EGD/Colonoscopy Consent for Planned Operative Procedure(s) Verified: Yes NPO Status Verified Time NPO: 00:00 Airway Assessment Mallampati Score:: Class I C-Spine Mobility Assessed: Yes TMJ Mobility Assessed: Yes Dentition: Good Dentition Neurological Assessment Level of Consciousness: Awake Hx Seizures: No Numbness or tingling in extremities: No Anesthesia Plan Anesthesia Risk discussed: Yes Anesthesia Plan: Verified ASA Class: II Anesthesia Type: MAC
[2023-01-31 07:37] LABS: Urine Pregnancy, HCG Qual. Negative (Negative)
--- NOTE | 2023-01-31 08:29 | HMH.SCOPE ---
Procedure: Date: 01/31/23 Patient Date of :: 1970 Procedure Performed:: Esophagogastroduodenoscopy with biopsy Colonoscopy with polypectomy Indications:: Gastroesophageal reflux Screening Performing Provider:: Luis Felipe Pop MD Referring Provider:: . Sedation:: Monitored anesthesia care Procedure:: After informed consent was obtained the patient was taken to the endoscopy suite. Sedation ensued after the patient was transferred to the left lateral decubitus position. Pulse, blood pressure, and oxygen saturation were monitored throughout the procedure. The endoscope was advanced beyond the duodenal bulb. Retroflexion within the gastric lumen was accomplished. The gastroscope was carefully removed. Digital rectal exam revealed no significant abnormality. The colonoscope was placed in position. The entire colon was evaluated. The colonoscope was carefully removed and the patient was transferred to recovery in stable condition. Please see findings and specimens below for detail. Findings:: Gastroesophageal junction at 37 cm Small area of polypoid inflammation just past duodenal sweep (D3) Polypoid/lobulated ampulla Bowel preparation moderate Fairly significant sigmoid tortuosity Moderate spasticity Terminal ileum appeared normal Mild sigmoid diverticulosis Polyps (see specimens) Specimens:: Biopsy of polypoid inflammation just past duodenal sweep (D3) Antral biopsy Adjacent small sessile polyps of the splenic flexure (cold biopsy forceps and cold snare) Recommendations:: Follow-up pathology Consider MRCP and/or ERCP Timing of repeat colonoscopy is pending pathology but will likely be around 2 years with alternate/extended bowel preparation. Complications:: No immediate Estimated blood obtained (mL): 1 Colonoscopy Component Colonoscopy Component Was a colonoscopy performed during today's procedure?: Yes Recommended follow up colonoscopy of at least 10 years?: No If no, follow up colonoscopy recommended in ___ years?: Approximately 2 years Reason for not recommending >/= 10 yr follow-up interval?: Polyp; bowel preparation; tortuosity; spasticity
--- NOTE | 2023-01-31 08:46 | SUR.PHASEII ---
828 - ORAL AIRWAY IN PLACE TO POST OP. CONT PULSE OX AND MONITORING.
== END 2023-01-31 09:18 | disposition home or self-care (01) ==
PROVIDERS: PCP Nurse Practitioner Family; Visit Provider Surgery
PROC: 0DJ08ZZ Inspection of Upper Intestinal Tract, Via Natural or Artificial Opening Endoscopic (ICD-10-PCS; CPT 43235; principal; 2023-01-31 07:30)
DX: Z12.11 Encounter for screening for malignant neoplasm of colon (principal); K21.9 Gastro-esophageal reflux disease without esophagitis; K56.2 Volvulus; K57.30 Diverticulosis of large intestine without perforation or abscess without bleeding; K31.9 Disease of stomach and duodenum, unspecified; D12.3 Benign neoplasm of transverse colon
CPT/HCPCS: 43239; 45385; 81025; J2704